=== PATIENT | male | born 1970 | race Caucasian/White ===

== ENCOUNTER → 2020-08-10 | Day surgery (SDC) | payer OTHER ==
[~2020-08-10] MED LIST: CLONIDINE HCL0.1 MG PO; HCTZ25 MG PO; JANUVIA 100MG100 MG PO; LISINOPRIL20 MG PO; LISINOPRIL40 MG PO; METFORMIN HCL1000 MG PO; NORCO 5-325 TA1 EACH PO; ONDANSETRON ODT8 MG PO; VITAMIN D21250 MCG PO
[2020-08-10 08:38] LABS: HCT 43.7 % (42.0-52.0); HGB 15.4 g/dl (13.2-18.0); MCHC 35.2 g/dL (32.0-36.0); MCV 88.1 fL (78.0-100.0); RBC 4.96 M/uL (4.70-6.00); RDW 13.4 % (11.5-14.0); WBC 8.3 K/uL (4.0-10.5)
[2020-08-10 08:52] LABS: ALBUMIN 3.6 g/dL (3.4-5.0); BILIRUBIN - TOTAL 0.5 mg/dL (0.2-1.0); BUN/CREAT RATIO (CALC) 18.6 RATIO; CREATININE 0.86 mg/dL (0.67-1.17); GLOBULIN (CALCULATION) 3.5 g/dL; POTASSIUM 3.9 mmol/L (3.5-5.1); TOTAL PROTEIN 7.1 g/dL (6.4-8.2)
== END | disposition home or self-care (01) ==
LOC: FAS 08:08
PROVIDERS: Surgery
DX: K42.0 Umbilical hernia with obstruction, without gangrene (principal); Z86.16 Personal history of COVID-19; Z79.84 Long term (current) use of oral hypoglycemic drugs; Z79.899 Other long term (current) drug therapy; E11.9 Type 2 diabetes mellitus without complications
CPT/HCPCS: 36415; 80053; J0690; J2250; J2405; J2704; J3010; J7120